=== PATIENT | female | born 2000 | race Two or more races ===

== ENCOUNTER 2019-08-02 18:07 | Emergency (ER) | payer OTHER ==
[2019-08-02] MEDS ORDERED: IBUPROFEN 600 MG TABLET PO ONE (20:13)
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
--- NOTE | 2019-08-02 20:23 | RADIOLOGY REPORT (SQ) ---
5 VIEWS OF LUMBAR SPINE EXAM DATE: 08/02/2019 12:00 AM CDT HISTORY: Lower back pain. COMPARISON: None. FINDINGS: No acute compression fracture is seen. Normal lumbar alignment. The disc spaces and facet joints are intact. The sacroiliac joints are preserved. No evidence of spondylolysis on the oblique views. IMPRESSION: No acute lumbar findings are seen.
[2019-08-02 21:06] VITALS: BP 108/64
== END 2019-08-02 21:13 | disposition home or self-care (01) ==
LOC: ER 18:07
DX: M54.5 Low back pain (principal); V49.50XA Passenger injured in collision with unspecified motor vehicles in traffic accident, initial encounter
CPT/HCPCS: 72110; 81025; 99283